=== PATIENT | female | born 1950 | race American Indian/Alaskan Native ===

== ENCOUNTER 2018-02-11 10:41 | Emergency (ER) | payer MEDICARE ==
[2018-02-11 10:54] VITALS: BP 129/88; PULSE 55; RESP 18; TEMP 98.2; O2SAT 99
--- NOTE | 2018-02-11 12:16 | C.PDOC ---
History Of Present Illness 67yo female, currently on Coumadin due to history of DVT, brought to ED by EMS for evaluation of right shoulder and hip pain. Of note, patient was able to walk to the ambulance from her home. She denies any new trauma, weakness, numbness or tingling to her extremities. No other medical complaints. - HPI Time Seen by Provider: 02/11/18 11:23 Chief Complaint (Nursing): Trauma History Per: Patient History/Exam Limitations: no limitations Onset/Duration Of Symptoms: Days (1) Injury Occurred (Timing): Days Ago: (1) Location Of Injury: Right: Shoulder, Left: Hip Past Medical History Reviewed: Historical Data, Nursing Documentation, Vital Signs Vital Signs: Last Vital Signs Temp 98.2 F 02/11/18 10:51 Pulse 55 L 02/11/18 10:51 Resp 18 02/11/18 10:51 BP 129/88 02/11/18 10:51 Pulse Ox 99 02/11/18 12:15 - Medical History PMH: Arthritis, Deep Vein Thrombosis, HTN, Hypercholesterolemia, Rheumatoid Arthritis Denies: Chronic Kidney Disease Surgical History: No Surg Hx Family History: States: Unknown Family Hx - Social History Hx Alcohol Use: No Hx Substance Use: No - Immunization History Hx Tetanus Toxoid Vaccination: No Hx Influenza Vaccination: No Hx Pneumococcal Vaccination: No Review Of Systems Except As Marked, All Systems Reviewed And Found Negative. Musculoskeletal: Positive for: Shoulder Pain (right shoulder), Other (left hip pain) Neurological: Negative for: Weakness, Numbness Physical Exam - Physical Exam Appears: Non-toxic, No Acute Distress Skin: Normal Color, Warm, Dry, No Ecchymosis Head: Atraumatic, Normacephalic Eye(s): bilateral: Normal Inspection, PERRL, EOMI Nose: Normal Neck: Normal ROM, Supple Chest: Symmetrical Cardiovascular: Rhythm Regular Respiratory: Normal Breath Sounds Extremity: Normal ROM (FROM of all extremities), No Deformity, No Swelling, Other (no ecchymosis or swelling noted to right shoulder, left hip. ) Neurological/Psych: Oriented x3 ED Course And Treatment O2 Sat by Pulse Oximetry: 99 (RA) Pulse Ox Interpretation: Normal Medical Decision Making Medical Decision Making: R shoulder and hip contusions from fall from standing yesterday neg x-rays probable small bruising related to anticoagulation for h/o DVT no evidence of NEW DVT today. Disposition Doctor Will See Patient In The: Office Counseled Patient/Family Regarding: Studies Performed, Diagnosis - Disposition Referrals: Alanna Cuellar MD [Staff Provider] - Disposition: HOME/ ROUTINE Disposition Time: 12:15 Condition: GOOD Additional Instructions: continue ice packs 1/2 hour per hour, nothing hot no hot showers Motrin 400-600 mg every 6 hours as needed Follow-up with Dr. Cuellar as needed. Instructions: Taking Care of Bruises, Contusion (DC) Forms: [employer] (Divehi) - Clinical Impression Clinical Impression: Contusion - Scribe Statement The provider has reviewed the documentation as recorded by the Scribe (Hilaria Corral) Provider Attestation: All medical record entries made by the Scribe were at my direction and personally dictated by me. I have reviewed the chart and agree that the record accurately reflects my personal performance of the history, physical exam, medical decision making, and the department course for this patient. I have also personally directed, reviewed, and agree with the discharge instructions and disposition.
--- NOTE | 2018-02-11 12:24 | RAD ---
PROCEDURE: Radiographs of the Right Shoulder HISTORY: fall yesterday COMPARISON: No prior. FINDINGS: BONES: There is no acute displaced fracture or bone destruction. Bone alignment is normal. JOINTS: Normal. Glenohumeral and acromioclavicular joints preserved. No osteoarthritis. SOFT TISSUES: Normal. OTHER FINDINGS: None. IMPRESSION: No acute displaced fracture or dislocation.
--- NOTE | 2018-02-11 12:26 | RAD ---
PROCEDURE: Right Hip Radiographs. HISTORY: fall yesterday COMPARISON: None. FINDINGS: BONES: The pelvic ring is intact. There is no acute displaced fracture or bone destruction. JOINTS: The hip joint spaces are preserved. There is mild degenerative osteoarthrosis in the sacroiliac joints. SOFT TISSUES: Normal. OTHER FINDINGS: None. IMPRESSION: No acute displaced fracture or dislocation.
== END 2018-02-11 12:30 | disposition home or self-care (01) ==
LOC: C.ER 10:41
DX: S40.011A Contusion of right shoulder, initial encounter (principal); S70.02XA Contusion of left hip, initial encounter; W18.30XA Fall on same level, unspecified, initial encounter

== ENCOUNTER 2018-07-20 22:46 | Emergency (ER) | payer MEDICARE, OTHER ==
[2018-07-21] MEDS ORDERED: Sodium Chloride 0.9% 1,000 ML IV SCH
[2018-07-21] MEDS ORDERED: Sodium Chloride 0.9% 1,000 ML ONE (01:03)
[2018-07-21 01:04] LABS: BASO # 0.1 K/uL (0.0-0.2); BASO % 0.7 % (0.0-2.0); EOS # 0.1 K/uL (0.0-0.7); EOS % 1.5 % (0.0-4.0); HEMOGLOBIN 11.6 g/dL (11.0-16.0); LYMPH # 1.3 K/uL (1.0-4.3); LYMPH % 17.7 % (20.0-40.0); MEAN CELL VOLUME 84.5 fL (81.0-99.0); MEAN CORPUSCULAR HGB CONC 33.2 g/dL (33.0-37.0); MEAN PLATELET VOLUME 8.9 fL (7.2-11.7); MONO # 0.7 K/uL (0.0-0.8); MONO % 9.5 % (0.0-10.0); NEUT % 70.6 % (50.0-75.0); RBC 4.12 Mil/uL (3.80-5.20); RED CELL DISTRIBUTION WIDTH 16.1 % (11.5-14.5); WHITE BLOOD COUNT 7.1 K/uL (4.8-10.8)
[2018-07-21 01:11] LABS: ALB/GLOB RATIO 1.2 (1.0-2.1); ALBUMIN 3.8 g/dL (3.5-5.0); ALT/SGPT 28 U/L (9-52); AST/SGOT 25 U/L (14-36); BLOOD UREA NITROGEN 18 mg/dL (7-17); CALCIUM 8.9 mg/dl (8.6-10.4); GFR NON-AFRICAN AMERICAN > 60
[2018-07-21 02:00] LABS: SQUAMOUS EPITHIAL 6 /hpf (0-5); URINE BACTERIA RARE (<OCC); URINE BILIRUBIN NEGATIVE (NEGATIVE); URINE BLOOD 1+ (NEGATIVE); URINE CLARITY Hazy (Clear); URINE COLOR Yellow (YELLOW); URINE GLUCOSE (UA) NORMAL (Normal); URINE LEUKOCYTE ESTERASE TRACE Leu/uL (Negative); URINE PROTEIN NEGATIVE (NEGATIVE); URINE UROBILINOGEN NORMAL mg/dL (0.2-1.0)
--- NOTE | 2018-07-21 02:50 | C.PDOC ---
History Of Present Illness 67 year old female presents to the ED for evaluation of left flank pain for one day. Patient took two tablets of Tylenol with mild relief, but states her pain returned. Patient denies fever, chills, nausea, vomiting, dysuria, hematuria, vaginal bleeding/discharge, or history of kidney stones in the past. Chief Complaint (Nursing): Back Pain History Per: Patient History/Exam Limitations: no limitations Onset/Duration Of Symptoms: Hrs Current Symptoms Are (Timing): Still Present Quality Of Discomfort: "Pain" Additional History Per: Patient Past Medical History Reviewed: Historical Data, Nursing Documentation, Vital Signs Vital Signs: Last Vital Signs Temp 97.7 F 07/21/18 02:51 Pulse 57 L 07/21/18 02:51 Resp 20 07/21/18 02:51 BP 154/84 H 07/21/18 02:51 Pulse Ox 99 07/21/18 05:17 - Medical History PMH: Arthritis, Deep Vein Thrombosis, HTN, Hypercholesterolemia, Rheumatoid Arthritis Denies: Chronic Kidney Disease Surgical History: No Surg Hx Family History: States: Unknown Family Hx - Social History Hx Alcohol Use: No Hx Substance Use: No - Immunization History Hx Tetanus Toxoid Vaccination: No Hx Influenza Vaccination: No Hx Pneumococcal Vaccination: No Review Of Systems Constitutional: Negative for: Fever, Chills Gastrointestinal: Negative for: Nausea, Vomiting Genitourinary: Negative for: Dysuria, Hematuria, Vaginal Discharge, Vaginal Bleeding Musculoskeletal: Positive for: Other (left flank pain ) Physical Exam - Physical Exam Appears: Non-toxic, No Acute Distress Skin: Normal Color, Warm, Dry Head: Atraumatic, Normacephalic Eye(s): bilateral: Normal Inspection Oral Mucosa: Moist Neck: Supple Chest: Symmetrical, No Deformity, No Tenderness Cardiovascular: Rhythm Regular, No Murmur Respiratory: Normal Breath Sounds, No Rales, No Rhonchi, No Wheezing Gastrointestinal/Abdominal: Soft, No Tenderness, No Guarding, No Rebound Back: Other (mild left flank tenderness ) Extremity: Normal ROM, Capillary Refill (less than 2 seconds ) Neurological/Psych: Oriented x3, Normal Speech, Normal Cognition ED Course And Treatment - Laboratory Results Result Diagrams: 07/21/18 01:00 07/21/18 01:00 O2 Sat by Pulse Oximetry: 99 (on RA) Pulse Ox Interpretation: Normal - CT Scan/US CT A/P Other Rad Studies (CT/US): Read By Radiologist, Radiology Report Reviewed CT/US Interpretation: EXAM: CT Abdomen and Pelvis Without Intravenous Contrast. CLINICAL HISTORY: 67 years old, female; Pain; Abdominal pain; Flank; Left; Additional info: Left. flank pain. TECHNIQUE: Axial computed tomography images of the abdomen and pelvis without intravenous. contrast. All CT scans at this facility use at least one of these dose optimization techniques: automated exposure control; mA and/or kV adjustment per patient size (includes targeted exams. where dose is matched to clinical indication); or iterative reconstruction. Coronal and sagittal. reformatted images were created and reviewed. COMPARISON: No relevant prior studies available. FINDINGS: Lung bases: Unremarkable. No mass. No consolidation. ABDOMEN: Liver: Unremarkable. Gallbladder and bile ducts: Unremarkable. No calcified stones. No ductal dilation. Pancreas: Unremarkable. No ductal dilation. Spleen: Unremarkable. No splenomegaly. Adrenals: Unremarkable. No mass. Kidneys and ureters: Unremarkable. No stones within either kidney or ureter and no hydronephrosis. Stomach and bowel: Diverticulosis in the colon without evidence of diverticulitis. No obstruction. PELVIS: Appendix: No findings to suggest acute appendicitis. Bladder: Unremarkable. No stones. Reproductive: Hysterectomy. ABDOMEN and PELVIS: Intraperitoneal space: Unremarkable. No free air. No significant fluid collection. Bones/joints: No acute fracture. No dislocation. Soft tissues: Unremarkable. Vasculature: Atherosclerotic disease. No abdominal aortic aneurysm. Lymph nodes: Unremarkable. No enlarged lymph nodes. IMPRESSION: No stones within either kidney or ureter and no hydronephrosis Medical Decision Making Medical Decision Making: Progress: Bloodwork, urinalysis, CT A/P ordered and reviewed. Toradol IVP and IV Fluids given. Disposition - Disposition Referrals: Alanna Cuellar MD [Primary Care Provider] - Disposition: HOME/ ROUTINE Disposition Time: 02:45 Condition: IMPROVED Additional Instructions: AIDEN VENEGAS, thank you for letting us take care of you today. Your provider was Christopher Proctor DO and you were treated for FLANK PAIN. The emergency medical care you received today was directed at your acute symptoms. If you were prescribed any medication, please fill it and take as directed. It may take several days for your symptoms to resolve. Return to the Emergency Department if your symptoms worsen, do not improve, or if you have any other problems. Please contact your doctor or call one of the physicians/clinics you have been referred to that are listed on the Patient Visit Information form that is included in your discharge packet. Bring any paperwork you were given at discharge with you along with any medications you are taking to your follow up visit. Our treatment cannot replace ongoing medical care by a primary care provider outside of the emergency department. Thank you for allowing the [facility] team to be part of your care today. Follow up with your primary care doctor in 2-3 days for re-evaluation and further management. Prescriptions: Ibuprofen [Motrin] 400 mg PO Q6 PRN #15 tab PRN Reason: Pain, Moderate (4-7) Instructions: Muscle and Bone Pain (DC) Forms: [employer] (Turkmen) - Clinical Impression Clinical Impression: Thoracic back pain - Scribe Statement The provider has reviewed the documentation as recorded by the Scribe (Meagan Atkinson) Provider Attestation: All medical record entries made by the Scribe were at my direction and personally dictated by me. I have reviewed the chart and agree that the record accurately reflects my personal performance of the history, physical exam, medical decision making, and the department course for this patient. I have also personally directed, reviewed, and agree with the discharge instructions and disposition.
[2018-07-21 02:52] VITALS: BP 154/84; PULSE 57; RESP 20; TEMP 97.7
[2018-07-21 05:16] VITALS: O2SAT 99
--- NOTE | 2018-07-21 07:19 | CT ---
Date of service: 07/21/2018 PROCEDURE: CT Abdomen and Pelvis without intravenous contrast HISTORY: left flank pain COMPARISON: None. TECHNIQUE: Multiple contiguous axial images were performed through the abdomen and pelvis without the use of intravenous contrast. Subsequently, sagittal and coronal reformatted images were obtained. Radiation dose: Total exam DLP = 1144 mGy-cm. This CT exam was performed using one or more of the following dose reduction techniques: Automated exposure control, adjustment of the mA and/or kV according to patient size, and/or use of iterative reconstruction technique. FINDINGS: LOWER THORAX: 4 millimeter pulmonary nodular density within the right lower lobe of the lung on series 3, image 1. 3-6 month interval followup exam would be helpful if clinically indicated. LIVER: Unremarkable. No gross lesion or ductal dilatation. GALLBLADDER AND BILE DUCTS: Unremarkable. PANCREAS: Unremarkable. No gross lesion or ductal dilatation. SPLEEN: Diminutive. ADRENALS: Unremarkable. No mass. KIDNEYS AND URETERS: Unremarkable. No hydronephrosis. No solid mass. VASCULATURE: Atherosclerotic disease in the aorta. BOWEL: Unremarkable. No obstruction. No gross mural thickening. Diverticulosis. APPENDIX: No findings to suggest acute appendicitis. PERITONEUM: Unremarkable. No free fluid. No free air. LYMPH NODES: Unremarkable. No enlarged lymph nodes. BLADDER: Unremarkable. REPRODUCTIVE: Hysterectomy. BONES: No acute fracture. OTHER FINDINGS: None. IMPRESSION: Negative acute. Diverticulosis. 4 millimeter pulmonary nodular density within the right lower lobe of the lung on series 3, image 1. 3-6 month interval followup exam would be helpful if clinically indicated. Additional findings as above. These findings were preliminarily reported at 1:05 a.m. on 07/21/[address] Thad Cerna from [employer].
== END 2018-07-21 03:08 | disposition home or self-care (01) ==
LOC: C.ER 22:46 → SUPCPDRO 22:46 → C.ER 07-21 03:08
DX: M54.6 Pain in thoracic spine (principal); I10 Essential (primary) hypertension; E78.00 Pure hypercholesterolemia, unspecified; M06.9 Rheumatoid arthritis, unspecified
CPT/HCPCS: 74176; 80053; 81001; 85025; 87086; 96374; 99284; J1885; J7030

== ENCOUNTER 2018-07-24 10:01 | Emergency (ER) | payer MEDICARE, OTHER ==
[2018-07-24 10:28] VITALS: O2SAT 98
--- NOTE | 2018-07-24 11:34 | C.PDOC ---
History Of Present Illness 67 year old female patient with hx of blood cloths and arthritis presents to the ER with c/o rash on her left-side flank/waist. Patient reports she was here x3 days ago with c/o left-sided waist and flank pain with rash. She states both are still present. Patient notes she takes warfarin 4mg for her blood clot. Patient denies fever, chills, SOB, chest pain, nausea, vomiting and itchiness. Time Seen by Provider: 07/24/18 10:21 Chief Complaint (Nursing): Medical Clearance History Per: Patient History/Exam Limitations: no limitations Onset/Duration Of Symptoms: Days (x3) Current Symptoms Are (Timing): Still Present Past Medical History Reviewed: Historical Data, Nursing Documentation, Vital Signs Vital Signs: Last Vital Signs Temp 98.4 F 07/24/18 10:08 Pulse 60 07/24/18 10:08 Resp 17 07/24/18 10:13 BP 110/76 07/24/18 10:08 Pulse Ox 98 07/24/18 11:41 - Medical History PMH: Arthritis, Deep Vein Thrombosis, HTN, Hypercholesterolemia, Rheumatoid Arthritis Family History: States: Unknown Family Hx - Social History Hx Alcohol Use: No Hx Substance Use: No - Immunization History Hx Tetanus Toxoid Vaccination: No Hx Influenza Vaccination: No Hx Pneumococcal Vaccination: No Review Of Systems Except As Marked, All Systems Reviewed And Found Negative. Constitutional: Negative for: Fever, Chills Cardiovascular: Negative for: Chest Pain Respiratory: Negative for: Shortness of Breath Gastrointestinal: Negative for: Nausea, Vomiting Skin: Positive for: Rash (no itchiness) Physical Exam - Physical Exam Appears: Non-toxic, No Acute Distress Skin: Warm, Dry, Rash (vesicular rash along flank radiating along abdomen and breast.) Head: Normacephalic Throat: Normal Chest: Symmetrical, No Deformity Cardiovascular: Rhythm Regular Respiratory: Normal Breath Sounds, No Rales, No Rhonchi, No Wheezing Gastrointestinal/Abdominal: Soft, No Tenderness Neurological/Psych: Oriented x3, Normal Speech ED Course And Treatment O2 Sat by Pulse Oximetry: 98 (RA) Pulse Ox Interpretation: Normal Medical Decision Making Medical Decision Making: Impression: herpes virus Plans: -- Motrin -- Tylenol -- Zovirax -- Prednisone Reassess: Patient reports she feels better and was given prescription to fill out. Patient instructed to f/u with PMD in 1-2 days. Disposition Counseled Patient/Family Regarding: Diagnosis, Need For Followup, Rx Given - Disposition Referrals: Alanna Cuellar MD [Staff Provider] - Disposition: HOME/ ROUTINE Disposition Time: 11:34 Condition: STABLE Prescriptions: Acetaminophen with Codeine [Tylenol with Codeine #3 Tablet] 2 each PO TID #18 tablet Acyclovir [Zovirax] 800 mg PO 5XD #35 tablet Prednisone [Deltasone] 60 mg PO DAILY #12 tablet Instructions: Shingles Forms: [employer] (Slovak), General Discharge Instructions - POA Present On Arrival: None - Clinical Impression Clinical Impression: Zoster - Scribe Statement The provider has reviewed the documentation as recorded by the Live [employer] Do Provider Attestation: All medical record entries made by the Esvinibe were at my direction and personally dictated by me. I have reviewed the chart and agree that the record accurately reflects my personal performance of the history, physical exam, medical decision making, and the department course for this patient. I have also personally directed, reviewed, and agree with the discharge instructions and disposition.
[2018-07-24 12:12] VITALS: BP 123/74; PULSE 61; RESP 16; TEMP 98.3
== END 2018-07-24 12:13 | disposition home or self-care (01) ==
LOC: C.ER 10:01
DX: B02.9 Zoster without complications (principal)
CPT/HCPCS: 99285; J8499

== ENCOUNTER 2018-09-23 19:54 | Emergency (ER) | payer MEDICARE, OTHER ==
[2018-09-23 20:01] VITALS: TEMP 98.6
[2018-09-23] MEDS ORDERED: Albuterol-Ipratrop 3 mg / 0.5 (3 ml) UD INH STA (20:59)
[2018-09-23 21:18] LABS: BASO # 0.1 K/uL (0.0-0.2); BASO % 0.6 % (0.0-2.0); EOS % 0.5 % (0.0-4.0); HEMOGLOBIN 11.2 g/dL (11.0-16.0); LYMPH % 21.1 % (20.0-40.0); MEAN CELL VOLUME 85.8 fL (81.0-99.0); MEAN CORPUSCULAR HEMOGLOBIN 28.3 pg (27.0-31.0); MEAN PLATELET VOLUME 8.5 fL (7.2-11.7); MONO # 0.9 K/uL (0.0-0.8); MONO % 9.5 % (0.0-10.0); NEUT # 6.5 K/uL (1.8-7.0); NEUT % 68.3 % (50.0-75.0); NRBC % 0.1 % (0.0-2.0); RBC 3.97 Mil/uL (3.80-5.20); RED CELL DISTRIBUTION WIDTH 17.2 % (11.5-14.5); WHITE BLOOD COUNT 9.4 K/uL (4.8-10.8)
[2018-09-23] MEDS ORDERED: Albuterol-Ipratrop 3 mg / 0.5 (3 ml) UD ONE (21:26)
[2018-09-23 21:32] LABS: ALB/GLOB RATIO 1.1 (1.0-2.1); ALBUMIN 3.5 g/dL (3.5-5.0); ALT/SGPT 23 U/L (9-52); AST/SGOT 20 U/L (14-36); BLOOD UREA NITROGEN 17 mg/dL (7-17); CALCIUM 8.9 mg/dl (8.6-10.4); GFR NON-AFRICAN AMERICAN > 60
[2018-09-23 21:44] LABS: B-TYPE NATRIURETIC PEPTIDE 457 pg/mL (0-900)
--- NOTE | 2018-09-23 22:11 | C.PDOC ---
History Of Present Illness 67 y/o female presents to ED complaining of a dry nonproductive cough for the last 10 days. States she tried some Tylenol yesterday without improvement and has not followed up with her PMD Dr. Cuellar. She denies any SOB, chest pain, or dizziness. Time Seen by Provider: 09/23/18 20:05 Chief Complaint (Nursing): Cough, Cold, Congestion History Per: Patient History/Exam Limitations: no limitations Onset/Duration Of Symptoms: Days Current Symptoms Are (Timing): Still Present Past Medical History Reviewed: Historical Data, Nursing Documentation, Vital Signs Vital Signs: Last Vital Signs Temp 98.6 F 09/23/18 19:58 Pulse 57 L 09/23/18 20:32 Resp 16 09/23/18 20:32 BP 130/73 09/23/18 20:32 Pulse Ox 100 09/23/18 20:32 - Medical History PMH: Arthritis, Deep Vein Thrombosis, HTN, Hypercholesterolemia, Rheumatoid Arthritis Denies: Chronic Kidney Disease Family History: States: No Known Family Hx - Social History Hx Alcohol Use: No Hx Substance Use: No - Immunization History Hx Tetanus Toxoid Vaccination: No Hx Influenza Vaccination: No Hx Pneumococcal Vaccination: No Review Of Systems Except As Marked, All Systems Reviewed And Found Negative. Constitutional: Negative for: Fever, Chills Cardiovascular: Negative for: Chest Pain Respiratory: Positive for: Cough. Negative for: Shortness of Breath Gastrointestinal: Negative for: Nausea, Vomiting, Diarrhea Neurological: Negative for: Weakness, Numbness, Dizziness Physical Exam - Physical Exam Appears: Non-toxic, No Acute Distress, Other (mildly obese) Skin: Warm, Dry Head: Atraumatic, Normacephalic Eye(s): bilateral: Normal Inspection Oral Mucosa: Moist Neck: Supple Cardiovascular: Rhythm Regular, JVD Respiratory: Rales, Wheezing (scattered) Gastrointestinal/Abdominal: Soft, No Tenderness Extremity: Bilateral: Other (2/4 pitting edema) Pulses: Left Dorsalis Pedis: Normal, Right Dorsalis Pedis: Normal Neurological/Psych: Oriented x3, Normal Speech, Normal Motor, Normal Sensation Gait: Steady ED Course And Treatment - Laboratory Results Result Diagrams: 09/23/18 21:15 09/23/18 21:15 Lab Interpretation: Normal (flu neg) ECG: Interpreted By Me ECG Rhythm: Sinus Rhythm ECG Interpretation: Normal Rate From EC O2 Sat by Pulse Oximetry: 100 (RA) Pulse Ox Interpretation: Normal - Radiology CXR: Interpreted by Me CXR Interpretation: Yes: Heart Size, Other (+ venous congestion) Reevaluation Time: 22:09 Reassessment Condition: Improved - Physician Consult Information Outcome Of Conversation: 2200: d/w Dr. Cuellar- PMD- ok for lasix IV one dose and to d/c home for opt f/u. Will be gently diuresed as outpatient. Medical Decision Making Medical Decision Making: Impression: Cough Plan: --EKG --Labs --Chest XR --Duoneb --Lasix --Solumedrol fluid overload prob due to R sided increased pulm art pressures- prior sequella of cronic PE LOW susp of PE today normal LV fxn per Dr. Alisa lopez to d/c home. Disposition Doctor Will See Patient In The: Office Counseled Patient/Family Regarding: Studies Performed, Diagnosis - Disposition Referrals: Alanna Cuellar MD [Staff Provider] - Disposition: HOME/ ROUTINE Disposition Time: 22:11 Condition: GOOD Additional Instructions: continue albuterol puffer 2 puffs every 3-4 hours as needed with Aerochamber Spacer You will urinate a large volume tonight Do NOT drink excess fluids Follow-up with Dr. Cuellar for further treatment. Prescriptions: Albuterol HFA [Ventolin HFA 90 mcg/actuation (8 g)] 200 puff IH Q4H PRN #2 puff PRN Reason: reactive airway Spacer, Inhalation [Aerochamber] 1 dev IH DAILY #1 dev Instructions: Cough in Adults, Fluid Restricted Diet Forms: [employer] (Botswanan) - Clinical Impression Clinical Impression: Cough, Fluid overload - Scribe Statement The provider has reviewed the documentation as recorded by the Live [employer] Provider Attestation: All medical record entries made by the Esvinibletitia were at my direction and personally dictated by me. I have reviewed the chart and agree that the record accurately reflects my personal performance of the history, physical exam, medical decision making, and the department course for this patient. I have also personally directed, reviewed, and agree with the discharge instructions and disposition.
[2018-09-23 22:42] VITALS: BP 112/78; PULSE 62; RESP 20
[2018-09-24 00:12] VITALS: O2SAT 100
--- NOTE | 2018-09-24 09:22 | RAD ---
Date of service: 09/23/2018 HISTORY: SOB COMPARISON: None available. FINDINGS: LUNGS: No active pulmonary disease. PLEURA: No significant pleural effusion identified, no pneumothorax apparent. CARDIOVASCULAR: No aortic atherosclerotic calcification present. Cardiomegaly is identified. Mild pulmonary vascular congestion suspected. OSSEOUS STRUCTURES: No significant abnormalities. VISUALIZED UPPER ABDOMEN: Right hemidiaphragm elevation is mild. OTHER FINDINGS: None. IMPRESSION: Mild pulmonary vascular congestion is suspected in concert with cardiomegaly. Further clinical correlation advised. No alveolitis or pleural effusion bilaterally. Nonspecific right hemidiaphragm elevation identified.
--- NOTE | 2018-09-26 15:27 | CARD ---
APPROVED REPORT Date of service: 09/23/2018 EKG Measurement Heart [id number] <Conclusion> Normal sinus rhythm Moderate voltage criteria for LVH, may be normal variant T wave abnormality: Nonspecific Abnormal ECG
== END 2018-09-23 22:41 | disposition home or self-care (01) ==
LOC: C.ER 19:54
DX: R05 Cough (principal); E87.70 Fluid overload, unspecified; I10 Essential (primary) hypertension; E78.00 Pure hypercholesterolemia, unspecified
CPT/HCPCS: 71045; 80053; 83880; 84484; 85025; 87040; 87804; 93005; 94640; 96374; 96375; 99284; J1940; J2930

== ENCOUNTER 2018-10-07 07:58 | Emergency (ER) | payer MEDICARE, OTHER ==
[2018-10-07 08:01] VITALS: BP 147/80; PULSE 60; RESP 20; TEMP 98.4
--- NOTE | 2018-10-07 08:51 | C.PDOC ---
Time Seen by Provider: 10/07/18 08:00 Chief Complaint (Nursing): Headache Past Medical History Vital Signs: Last Vital Signs Temp 98.4 F 10/07/18 08:00 Pulse 60 10/07/18 08:00 Resp 20 10/07/18 08:00 BP 147/80 10/07/18 08:00 Pulse Ox 99 10/07/18 08:00 - Medical History PMH: Arthritis, Deep Vein Thrombosis, HTN, Hypercholesterolemia, Rheumatoid Arthritis Denies: Chronic Kidney Disease Family History: States: Unknown Family Hx - Social History Hx Alcohol Use: No Hx Substance Use: No - Immunization History Hx Tetanus Toxoid Vaccination: No Hx Influenza Vaccination: No Hx Pneumococcal Vaccination: No ED Course And Treatment O2 Sat by Pulse Oximetry: 99 Disposition - Disposition Forms: [employer] (Nigerian)
--- NOTE | 2018-10-07 08:57 | C.PDOC ---
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 Patient states she was opening a window then it fell on her head. Patient currently complaints of right sided discomfort of head. Otherwise, pt Denies LOC, syncope, severe headache, visual changes, focal deficits, neck pain, chest pain, SOB, dyspnea, diaphoresis, palpitation, abd. pain, N/V, denies any other active complaints. Ambulatory in ED with stable gait, not in any apparent distress. Time Seen by Provider: 10/07/18 08:00 Chief Complaint (Nursing): Headache History Per: Patient History/Exam Limitations: no limitations Injury Occurred (Timing): Hours Ago: (3) Onset/Duration Of Symptoms: Hrs (3) Patient States: Struck With Object Loss Of Consciousness: No Recent travel outside of the [place]: No Past Medical History Reviewed: Historical Data, Nursing Documentation, Vital Signs Vital Signs: Last Vital Signs Temp 98.4 F 10/07/18 08:00 Pulse 60 10/07/18 08:00 Resp 20 10/07/18 08:00 BP 147/80 10/07/18 08:00 Pulse Ox 99 10/07/18 08:00 - Medical History PMH: Arthritis, Deep Vein Thrombosis, HTN, Hypercholesterolemia, Rheumatoid Arthritis Family History: States: Unknown Family Hx - Social History Hx Alcohol Use: No Hx Substance Use: No - Immunization History Hx Tetanus Toxoid Vaccination: No Hx Influenza Vaccination: No Hx Pneumococcal Vaccination: No Review Of Systems Constitutional: Negative for: Fever, Chills Cardiovascular: Negative for: Chest Pain Gastrointestinal: Negative for: Nausea, Vomiting, Diarrhea Musculoskeletal: Positive for: Other (Right sided head discomfort ) Skin: Negative for: Rash Neurological: Negative for: Weakness, Numbness, Headache, Other (LOC or Syncope ) Physical Exam - Physical Exam Appears: Well, Non-toxic, No Acute Distress Skin: Warm, Dry, No Rash Head: Normacephalic, Tenderness (mild over Right parietal scalp, no edema, no erythema, no palpable deformity.) Eye(s): bilateral: PERRL, EOMI Ear(s): Bilateral: Normal Nose: No Deformity Oral Mucosa: Moist Neck: Normal ROM, Trachea Midline, No Midline Cervical Tenderness, No Paracervical Tenderness, No Step Off Deformity, Supple Chest: Symmetrical, No Tenderness Cardiovascular: Rhythm Regular, No Murmur Respiratory: No Decreased Breath Sounds, No Accessory Muscle Use, No Rales, No Rhonchi, No Stridor, No Wheezing Back: No Vertebral Tenderness Extremity: Normal ROM, No Tenderness, No Swelling Extremity: Bilateral: Atraumatic, Normal Color And Temperature, Normal ROM Pulses: Left Radial: Normal, Right Radial: Normal Neurological/Psych: Oriented x3, Normal Speech, Normal Cognition, Normal Motor, Normal Sensation, Normal Reflexes Gait: Steady ED Course And Treatment O2 Sat by Pulse Oximetry: 99 (RA) Pulse Ox Interpretation: Normal - CT Scan/US CT head Other Rad Studies (CT/US): Radiology Report Reviewed CT/US Interpretation: Accession No. : [id number]. Patient Name / ID : THEO WOLFE / [id number]. Exam Date : 10/07/2018 08:38:26 ( Approved ). Study Comment : Sex / Age : F / 68Y. Creator : Lakisha Adair. Dictator : Regino Whaley MD. Assistant Merchandiser : Elementary Education Tutor : Regino Whaley MD. Approver2 : Report Date : 10/07/2018 08:45:01. My Comment : . This report is currently processing and HAS NOT BEEN OFFICIALLY SIGNED BY THE PHYSICIAN - ESTIMATED TIME OF APPROVAL IS 10/07/2018 09:09. Date of service: 10/07/2018. PROCEDURE: CT HEAD WITHOUT CONTRAST. HISTORY: injury. COMPARISON: 06/19/2015. TECHNIQUE: Axial computed tomography images were obtained through the head/brain without intravenous contrast. Radiation dose: Total exam DLP = 1212.97 mGy-cm. This CT exam was performed using one or more of the following dose reduction techniques: Automated exposure control, adjustment of the mA and/or kV according to patient size, and/or use of iterative reconstruction technique. FINDINGS: HEMORRHAGE: No intracranial hemorrhage. BRAIN: No mass effect or edema. Scattered focal lucencies in the subcortical and periventricular white matter suggestive for chronic microvascular ischemic change. Focal encephalomalacia seen within the posterior right frontal parietal lobe suggestive for chronic infarct. Additional small focal hypodensity seen within the posterior right cerebellum suggestive for ch ronic lacunar infarct. VENTRICLES: Unremarkable. No hydrocephalus. CALVARIUM: Unremarkable. PARANASAL SINUSES: Unremarkable as visualized. No significant inflammatory changes. MASTOID AIR CELLS: Unremarkable as visualized. No inflammatory changes. OTHER FINDINGS: None. IMPRESSION: No acute intracranial abnormality. 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 Small chronic lacunar infarct in the posterior right cerebellum. If symptoms persists, consider correlation with MRI. Progress Note: Administered Tylenol. Ordered blood work and CT Head. On re- eval, pt is afebrile, hemodynamicaly stable. Non-toxic. AMbulatory in ED with baseline gait. Head: AT/NC. Neck: SUpple, (-) midline tenderness. Lungs; CTA B/L, BS equal B/L. Neuorlogical yintact. CT head review- no acute abnormalities reliated to accident. Coag study review- INR 4.4. Case discussed with , recommend to stop Coumadin and discahrge with outpt f/u on 10/09/18. results review and discussed with patient, family. Pt has clinical findings c/w head injury, slight coumadin toxicity. Pt and family advised OBS 48 hrs for any isgn of hea dinjury-return to ED if any new hcnages. F/U with PMD in 2 days . Pt understand, stable for discharge. Disposition Counseled Patient/Family Regarding: Studies Performed, Diagnosis, Need For Followup - Disposition Referrals: Abdelrahman Cuellar [ED Scribe] - Disposition: HOME/ ROUTINE Disposition Time: 09:06 Condition: STABLE Additional Instructions: STOP COUMADIN UNTIL RE-EVALUATED BY OBSERVE 48 HRS FOR ANY SIGN OF HEAD INJURY-INTRACTABLE HEADACHE, VOMITING, LETARGY OR ANY OTHER NEW CHANGES-RETURN TO ED IMMEDIATELY FOR RE-EVALUATION. FOLLOW UP WITH PMD IN 2DAYS FOR RE-EVALUATION. Instructions: Minor Head Injury Forms: [employer] (Mexican) - Clinical Impression Clinical Impression: Head injury - PA / ROOM ATTENDANT / Resident Statement MD/DO has reviewed & agrees with the documentation as recorded. - Scribe Statement The provider has reviewed the documentation as recorded by the Esvinibe Jacquelin Page All medical record entries made by the Live were at my direction and personally dictated by me. I have reviewed the chart and agree that the record accurately reflects my personal performance of the history, physical exam, medical decision making, and the department course for this patient. I have also personally directed, reviewed, and agree with the discharge instructions and disposition.
--- NOTE | 2018-10-07 09:07 | CT ---
Date of service: 10/07/2018 PROCEDURE: CT HEAD WITHOUT CONTRAST. HISTORY: injury COMPARISON: 06/19/2015 TECHNIQUE: Axial computed tomography images were obtained through the head/brain without intravenous contrast. Radiation dose: Total exam DLP = 1212.97 mGy-cm. This CT exam was performed using one or more of the following dose reduction techniques: Automated exposure control, adjustment of the mA and/or kV according to patient size, and/or use of iterative reconstruction technique. FINDINGS: HEMORRHAGE: No intracranial hemorrhage. BRAIN: No mass effect or edema. Scattered focal lucencies in the subcortical and periventricular white matter suggestive for chronic microvascular ischemic change. Focal encephalomalacia seen within the posterior right frontal parietal lobe suggestive for chronic infarct. Additional small focal hypodensity seen within the posterior right cerebellum suggestive for chronic lacunar infarct. VENTRICLES: Unremarkable. No hydrocephalus. CALVARIUM: Unremarkable. PARANASAL SINUSES: Unremarkable as visualized. No significant inflammatory changes. MASTOID AIR CELLS: Unremarkable as visualized. No inflammatory changes. OTHER FINDINGS: None. IMPRESSION: No acute intracranial abnormality. 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 Small chronic lacunar infarct in the posterior right cerebellum. If symptoms persists, consider correlation with MRI.
[2018-10-07 10:29] LABS: INR 4.4; PROTHROMBIN TIME 48.2 SECONDS (9.7-12.2)
[2018-10-07 11:58] VITALS: O2SAT 98
== END 2018-10-07 11:57 | disposition home or self-care (01) ==
LOC: C.ER 07:58
DX: S09.90XA Unspecified injury of head, initial encounter (principal); W22.8XXA Striking against or struck by other objects, initial encounter

== ENCOUNTER 2019-03-13 19:02 | Emergency (ER) | payer MEDICARE, OTHER | END 2019-03-13 20:20 | disposition home or self-care (01) | LOC: C.ER 19:02 ==